=== PATIENT | male | born 1985 | race Caucasian/White ===

== ENCOUNTER 2019-01-31 14:16 | Emergency (ER) | payer OTHER, MEDICAID ==
[~2019-01-31] VITALS: Ht 177.8 cm; Wt 81.2 kg
[2019-01-31] MEDS ORDERED: IV NORMAL SALINE 1000 ML BAG IV ONE (14:30)
--- NOTE | 2019-01-31 14:30 | NUR ---
PT A/OX1, BIB [facility] W/ POLICE ESCORT, FOR AMS. PER EMS AND PD REPORT, PT WAS FOUND LAYING ON THE SIDEWALK AND HAS SINCE ADMITTED TO USE OF "DRUGS". VS WNL. PT IS ABLE TO FOLLOW COMMANDS, BUT SPEAKS MINIMALLY IN 2 WORD PHRASES. ER MD AT BEDSIDE FOR MSE. BILATERAL PERRLA. NAD.
[2019-01-31 14:42] LABS: BASOPHILS % (AUTO) 0.5 % (0.0-2.0); EOSINOPHILS # (AUTO) 0.1 K/uL (0.0-0.7); EOSINOPHILS % (AUTO) 0.6 % (0.0-7.0); HEMATOCRIT 42.1 % (36.7-47.1); HEMOGLOBIN 14.3 g/dL (12.5-16.3); LYMPHOCYTES # (AUTO) 2.7 K/uL (20.0-40.0); LYMPHOCYTES % (AUTO) 31.6 % (20.5-51.5); MEAN CORPUSCULAR HEMOGLOBIN 31.5 uug (23.8-33.4); MEAN CORPUSCULAR HGB CONC 34 g/dL (32.5-36.3); MEAN CORPUSCULAR VOLUME 93.1 fL (73.0-96.2); MONOCYTES # (AUTO) 0.9 K/uL (2.0-10.0); NEUTROPHILS # (AUTO) 4.8 K/uL (1.8-8.9); NEUTROPHILS % (AUTO) 56.3 % (38.5-71.5); PLATELET COUNT (AUTO) 205 K/uL (152-348); RED BLOOD CELL COUNT(AUTO) 4.52 MIL/uL (4.06-5.63); WHITE BLOOD COUNT (AUTO) 8.5 K/uL (3.6-10.2)
--- NOTE | 2019-01-31 14:44 | NUR ---
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 SEIZURE PRECAUTIONS IMPLEMENTED AND OBSERVED.
[2019-01-31 14:53] LABS: CARBON DIOXIDE 24 mmol/L (21-32); CHLORIDE 106 mmol/L (98-107); CREATININE 0.9 mg/dL (0.6-1.3); GLUCOSE 94 mg/dL (74-106); POTASSIUM 3.7 mmol/L (3.5-5.1); UREA NITROGEN, BLOOD 24 mg/dL (7-18)
[2019-01-31 15:04] LABS: ETHANOL < 3 MG/DL (0-0)
[2019-01-31 15:06] LABS: *BILIRUBIN,URIN 1+ (NEGATIVE); *BLOOD, URINE NEGATIVE (NEGATIVE); *CLARITY,URINE CLEAR (CLEAR); *COLOR,URINE DARK YELLOW (YELLOW); *KETONES,URINE 3+ (NEGATIVE); LEUKOCYTE ESTERASE ,URINE NEGATIVE (NEGATIVE); NITRITE, URINE NEGATIVE (NEGATIVE); UGLUCOSE NEGATIVE (NEGATIVE)
[2019-01-31 15:07] LABS: ALANINE AMINOTRANSFERASE 96 U/L (16-63); ALKALINE PHOSPHATASE 49 U/L (50-136); ASPARTATE AMINOTRANSFERASE 84 U/L (15-37); BILIRUBIN,DIRECT 0.3 mg/dL (0.0-0.2); BILIRUBIN,TOTAL 1.1 mg/dL (0.2-1.0); TOTAL PROTEIN, SERUM 7.1 g/dL (6.4-8.2)
[2019-01-31 15:08] LABS: ACETAMINOPHEN < 2.0 ug/mL (10-30)
[2019-01-31 15:15] LABS: *AMPHETAMINE, URINE POSITIVE (NEGATIVE); *BARBITURATE, URINE NEGATIVE (NEGATIVE); *CANNABINOID, URINE NEGATIVE (NEGATIVE); *COCCAINE, URINE NEGATIVE (NEGATIVE); *OPIATE, URINE NEGATIVE (NEGATIVE); *PHENCYCLIDINE SCREEN,URINE NEGATIVE (NEGATIVE)
[2019-01-31] MEDS ORDERED: LORAZEPAM 2 MG/1 ML VIAL IV ONE (15:15)
[2019-01-31] MEDS ORDERED: LORAZEPAM 2 MG/1 ML VIAL ONE (15:19)
[2019-01-31 15:23] LABS: MUCUS,URINE MODERATE /LPF (0-FEW); WBC,URINE 0-3 /HPF (0-3)
--- NOTE | 2019-01-31 16:29 | NUR ---
PT SLEEPING IN BED. BED IN LOW AND LOCKED POSITION W/ BILATERAL SIDERAILS UP. NAD.
--- NOTE | 2019-01-31 18:12 | NUR ---
PT AWAKE, ABLE TO ANSWER QUESTIONS APPROPRIATELY. PT REQUESTS FOOD. PT CONFIRMS THOUGHTS OF HURTING HIMSELF TO ER MD. WILL IMPLEMENT SUICIDE PRECAUTIONS.
--- NOTE | 2019-01-31 18:13 | NUR ---
CALLED ARNULFO STEINER, CRISIS WHEAT BUYER, FOR PSYCH EVAL. NO ANSWER, LEFT MESSAGE.
--- NOTE | 2019-01-31 18:16 | NUR ---
FOOD AND WATER PROVIDED. PT PLACED IN HOSPITAL GOWN. PT VERBALIZES SI, BUT NO SPECIFIC PLAN.
--- NOTE | 2019-01-31 18:17 | NUR ---
PT UNDER 1:1 DIRECT OBSERVATION FOR SAFETY PRECAUTIONS BY ME AT THIS TIME.
--- NOTE | 2019-01-31 18:31 | NUR ---
ARNULFO STEINER, CRISIS GRAIN RECEIVER, ETA 40 MIN.
--- NOTE | 2019-01-31 18:59 | NUR ---
SHIFT REPORT GIVEN TO MAGAN Jeong RN. 1:1 OBSERVATION SITTER MAGAN Jeong RN.
--- NOTE | 2019-01-31 19:03 | NUR ---
Assumed care of patient from Jimbo GALICIA.
--- NOTE | 2019-01-31 19:05 | NUR ---
Patient resting comfortably in bed. Denies any pain or SOB. NAD. Continue to monitor.
--- NOTE | 2019-01-31 19:14 | NUR ---
ARNULFO STEINER, CRISIS MOBILE PHONE SALESPERSON HERE, TO EVALUATE PATIENT.
--- NOTE | 2019-01-31 20:06 | NUR ---
Called [facility], spoke with Cole, regarding patient transfer.
--- NOTE | 2019-01-31 20:11 | NUR ---
Dr Kasper speaking with [place] MD ley patient.
--- NOTE | 2019-01-31 20:39 | NUR ---
Spoke with Shahnaz nelson [place], will call back for ETA of dispatch.
[2019-01-31] MEDS ORDERED: OLANZAPINE 5 MG TABLET ONE ×2 (21:49→23:39)
--- NOTE | 2019-01-31 21:53 | NUR ---
Patient refused Zyprexa. Stated " I don't need it anymore" "No thank you". Dr Kasper made aware.
--- NOTE | 2019-01-31 21:54 | NUR ---
Called [facility] for ETA of PET clinician. Clinician Emily is enroute, eta in 1 hour.
[2019-01-31] MEDS ORDERED: OLANZAPINE 5 MG TABLET PO ONE ×2 (22:00→23:45)
--- NOTE | 2019-01-31 22:37 | NUR ---
[facility] PET english adjunct faculty Nika at bedside.
--- NOTE | 2019-01-31 23:49 | NUR ---
Patient laying in bed. In no acute disterss. Denies any pain or SOB. VSS.
--- NOTE | 2019-02-01 00:36 | NUR ---
Betsy from [facility] called with transfer information. Patient is going to [facility] at [address] [place] [address]. [address], number to report to in 30 min, . Accepting MD is Brody Olivo MD.
--- NOTE | 2019-02-01 00:44 | NUR ---
patient asleep in hospital bed. In no acute distress. VSS.
--- NOTE | 2019-02-01 01:05 | NUR ---
Report given to [facility].
--- NOTE | 2019-02-01 01:14 | NUR ---
Patient pout of ER, citrus picker via ambulance. Report and documentation given to EMT. Patient to be transported to [facility]. VSS. IV site discontinued. All belongings with patient.
== END 2019-02-01 01:18 | disposition short-term general hospital (02) ==
LOC: EDBD 14:16 → ER 14:16
DX: F15.10 Other stimulant abuse, uncomplicated (principal); F39 Unspecified mood [affective] disorder
CPT/HCPCS: 36415; 80048; 80076; 80307; 81000; 81001; 85025; 93005; 96374; 99285; G0480 ×2; G0481; J2060; A4663; J7030